=== PATIENT | male | born 1945 | race Caucasian/White ===

== ENCOUNTER 2024-04-01 13:47 | Observation (INO) ==
[2024-04-01] MEDS: Cefepime 2 GM in Dextrose 2 GM/50 ML BAG IV ONE (17:05)
[2024-04-01 17:08] LABS: ABS Basophils 0.1 10^3/uL (0.0-0.1); ABS Eosinophils 0.2 10^3/uL (0.0-0.5); ABS Lymphocytes 0.8 10^3/uL (1.0-4.8); ABS Monocytes 0.6 10^3/uL (0.0-1.1); ABS Neutrophils 5.6 10^3/uL (1.5-7.6); Hematocrit 39.5 % (38-53); Hemoglobin 13.6 g/dL (13.2-16.3); Lymphocyte % 11.2 %; Mean Corpuscular Hemoglobin 33.1 pg (27-33); Mean Corpuscular Hgb Conc 34.4 g/dL (31-36); Mean Corpuscular Volume 96.4 fL (80-97); Mean Platelet Volume 8.5 fL (7.5-11.2); Platelet Count 367 10^3/uL (150-450); Red Cell Distribution Width 12.7 % (12-17); White Blood Count 7.3 10^3/uL (3.6-10.2)
[2024-04-01] MEDS: metroNIDAZOLE IV 500 MG/100ML 500 MG/100 ML BAG IVPB ONE (17:51)
[2024-04-01 18:24] LABS: Albumin 4.8 g/dL (3.2-5.2); Albumin/Globulin Ratio 1.5 (1-3); C Reactive Protein 5.38 mg/L (<8.01); Calcium 10.7 mg/dL (8.6-10.3); Creatinine, Serum 2.01 mg/dL (0.67-1.17); Globulin 3.3 g/dL (2-4); Potassium 5.1 mmol/L (3.5-5.0); Total Bilirubin 0.5 mg/dL (0.2-1.0); Total Protein 8.1 g/dL (6.4-8.9); eGFR CKD-EPI 33.1 (>60)
[2024-04-01] MEDS ORDERED: Polyethylene Glycol 3350 17 GM PACKET PO PRN (18:52)
[2024-04-01] MEDS: Vancomycin 1,750 MG in NS 0.9% 500 ml BAG 500 ML IVPB ONE (18:52)
[2024-04-01] MEDS ORDERED: Senna TAB 8.6 mg TAB PO PRN (18:52)
[2024-04-01] MEDS ORDERED: Vancomycin per Pharmacy 1 EA NOTE FOLLOW UP SCH (20:00)
[2024-04-01] MEDS ORDERED: Dextrose 50% Syringe 50 ml 25 GM/50 ML SYRINGE IV PUSH PRN (20:02)
[2024-04-01] MEDS: Enoxaparin 40 MG/0.4 ML SYR SUBCUT SCH (21:03)
[2024-04-02] MEDS: metroNIDAZOLE IV 500 MG/100ML 500 MG/100 ML BAG IVPB SCH (00:02)
[2024-04-02] MEDS: Cefepime 2 GM in Dextrose 2 GM/50 ML BAG IV SCH (04:20)
[2024-04-02 05:24] LABS: ABS Eosinophils 0.3 10^3/uL (0.0-0.5); ABS Lymphocytes 0.8 10^3/uL (1.0-4.8); ABS Monocytes 0.9 10^3/uL (0.0-1.1); ABS Neutrophils 5.5 10^3/uL (1.5-7.6); Eosinophil % 4.4 %; Hematocrit 34.1 % (38-53); Hemoglobin 11.7 g/dL (13.2-16.3); Mean Corpuscular Hemoglobin 33.1 pg (27-33); Mean Corpuscular Hgb Conc 34.4 g/dL (31-36); Mean Corpuscular Volume 96.4 fL (80-97); Mean Platelet Volume 8.3 fL (7.5-11.2); Platelet Count 299 10^3/uL (150-450); Red Blood Count 3.53 10^6/uL (4.06-5.63); Red Cell Distribution Width 12.8 % (12-17); White Blood Count 7.5 10^3/uL (3.6-10.2)
[2024-04-02 05:30] LABS: Calcium 9.1 mg/dL (8.6-10.3); Creatinine, Serum 1.8 mg/dL (0.67-1.17); Magnesium 2.1 mg/dL (1.9-2.7); Potassium 4.5 mmol/L (3.5-5.0); eGFR CKD-EPI 37.8 (>60)
[2024-04-02] MEDS: Aspirin EC 81 mg TAB.EC (enteric coated) PO SCH (08:49)
[2024-04-02] MEDS ORDERED: cefTRIAXone 1 gm/50 mL D5W 1 GM/50 ML BAG IV SCH (16:00)
[2024-04-02] MEDS ORDERED: Vancomycin 1000 MG in NS 0.9% 250 ML IVPB SCH (16:00)
[2024-04-02] MEDS: cefTRIAXone 1 gm/50 mL D5W 1 GM/50 ML BAG IV SCH (16:22)
[2024-04-03 05:51] LABS: ABS Basophils 0.1 10^3/uL (0.0-0.1); ABS Eosinophils 0.3 10^3/uL (0.0-0.5); ABS Lymphocytes 0.8 10^3/uL (1.0-4.8); ABS Monocytes 0.8 10^3/uL (0.0-1.1); ABS Neutrophils 4.9 10^3/uL (1.5-7.6); Eosinophil % 4.5 %; Hematocrit 35.1 % (38-53); Lymphocyte % 11.6 %; Mean Corpuscular Hemoglobin 32.7 pg (27-33); Mean Corpuscular Hgb Conc 34.3 g/dL (31-36); Mean Corpuscular Volume 95.3 fL (80-97); Mean Platelet Volume 8.5 fL (7.5-11.2); Platelet Count 301 10^3/uL (150-450); Red Blood Count 3.68 10^6/uL (4.06-5.63); Red Cell Distribution Width 12.6 % (12-17); White Blood Count 6.8 10^3/uL (3.6-10.2)
[2024-04-03 06:06] LABS: Calcium 9.3 mg/dL (8.6-10.3); Creatinine, Serum 1.67 mg/dL (0.67-1.17); Magnesium 2.3 mg/dL (1.9-2.7); Potassium 4.5 mmol/L (3.5-5.0); eGFR CKD-EPI 41.4 (>60)
[2024-04-03 14:31] VITALS: BP 107/62
[2024-04-04] MEDS ORDERED: Vancomycin Trough Check NOTE FOLLOW UP ONE (15:30)
== END 2024-04-03 14:38 | disposition home or self-care (01) ==
LOC: EDHOLD 13:47 → ED 13:47 → MEDTELE 04-02 11:49
PROVIDERS: ADMIT Internal Medicine; ATTEND Internal Medicine